=== PATIENT | female | born 1955 | race Caucasian/White ===

== ENCOUNTER 2019-12-18 08:05 | Emergency (ER) | payer MEDICARE, SELFPAY ==
--- NOTE | ~2019-12-18 | XR_ITS ---
EXAMINATION: XR ankle RT min 3V EXAM DATE: 12/18/2019 08:34 INDICATION: Initial encounter following injury, with pain of the right ankle. TECHNIQUE: Right ankle frontal, lateral and oblique projections obtained and reviewed. There is no p rior study for comparison. FINDINGS: The right ankle mortise appears intact. There are no acute fractures or dislocations iden tified. There is no subcutaneous gas. The soft tissue is unremarkable. There are no radiopaque fo reign bodies. IMPRESSION: 1. XR ankle RT min 3V exam without acute osseous findings. Reviewed, dictated and finalized at location [facility]
[2019-12-18 08:18] VITALS: BP 143/66; PULSE 74; RESP 20; TEMP 37.3; O2SAT 99
--- NOTE | 2019-12-18 08:25 | ED.EXTPRO ---
HPI - Extremity Problem General Chief complaint: Extremity Injury, Lower Stated complaint: right ankle injury Time Seen by Provider: 12/18/19 08:25 Source: patient and family History of Present Illness HPI Narrative: Patient presents with right ankle pain. Patient states yesterday she got out of her minivan and thinks she slipped on ice. Patient states she landed on her buttocks and had immediate pain to her right ankle. No swelling no deformity no open areas noted no bruising. Patient states it hurts to walk on the ankle. Patient denies any other injuries. MD Complaint: extremity pain Severity scale (1-10): 1 Related Data Home Medications Medication Instructions Recorded Confirmed No Home Medications 12/18/19 12/18/19 Allergies Allergy/AdvReac Type Severity Reaction Status Date / Time Penicillins Allergy Unknown Verified 12/18/19 08:43 Sulfa (Sulfonamide Allergy Unknown Verified 12/18/19 08:43 Antibiotics) Review of Systems Review of Systems: Narrative: CONSTITUTIONAL: Denies fever, chills, or sweats. EYES: Denies visual changes, redness, or discharge. ENT: Denies rhinorrhea, congestion, sore throat, or otalgia. CARDIOVASCULAR: Denies chest pain, palpitations, or edema. RESPIRATORY: Denies cough or dyspnea. GASTROINTESTINAL: Denies abdominal pain, nausea, vomiting, or diarrhea. GENITOURINARY: Denies dysuria or hematuria. SKIN: Denies rash or itching. MUSCULOSKELETAL: Denies back pain, joint pain, or myalgia. Right ankle pain NEUROLOGIC: Denies headache, numbness, or weakness. PSYCHIATRIC: Denies anxiety or depression. All systems reviewed & are unremarkable except as noted in HPI and below PMFSH Comments At time of signature, agree with nursing past medical, surgical, social and family history. There is no relevant family history pertinent to the presenting complaint Exam Narrative: Exam Narrative: GENERAL: Well-appearing, well-nourished, and in no acute distress. HEAD: Normocephalic, atraumatic. EYES: PERRLA and EOMI. ENT: Nares clear, no rhinorrhea or epistaxis. Mucous membranes moist. NECK: Supple. CHEST: Clear to auscultation. No respiratory distress. HEART: Regular rate and rhythm. No murmur heard. Normal peripheral pulses. ABDOMEN: Soft, nontender, nondistended, normal active bowel sounds. EXTREMITIES: Normal range of motion. No edema. ANKLE EXAM SKIN INTACT. NORMAL DP PULSE, NORMAL CAP REFILL. NORMAL SENSATION. SKIN: Warm, dry, no rash. NEURO: No focal deficits. Alert and oriented x3. Marcelo Coma Scale Eye Opening: Spontaneous 4 Marcelo Coma Scale Motor: Obeys Commands 6 [place] Coma Scale Verbal: Oriented 5 [place] Coma Scale Total 15 Course Vital Signs Vital signs: Vital Signs Temperature 37.3 C 12/18/19 08:18 Pulse Rate 74 12/18/19 08:18 Respiratory Rate 20 12/18/19 08:18 Blood Pressure 143/66 H 12/18/19 08:18 Pulse Oximetry 99 12/18/19 08:18 Temperature 37.3 C 12/18/19 08:18 Pulse Rate 74 12/18/19 08:18 Respiratory Rate 20 12/18/19 08:18 Blood Pressure 143/66 H 12/18/19 08:18 Pulse Oximetry 99 12/18/19 08:18 Please BOSSMAN schedule a followup visit with your personal physician for further evaluation and treatment. Including recheck and discussion of your blood pressure. If your symptoms persist, change or worsen significantly before you can contact your personal physician then please, without delay, go to the emergency department for further evaluation Addressed elevated BP today. Today's blood pressure higher than recommended range. Discussed importance of follow -up with PCP and possible detention effects/cardiovascular events related to HTN. Currently patient denies headache, dizziness, vision changes, CP or shortness of breath. MDM - Extremity (Nontraumatic) Imaging Data Attestation: I personally reviewed and interpreted this imaging study as follows: My impression: Negative ankle x-ray Radiologist's impression: No acute osseous abnormality
== END 2019-12-18 08:55 | disposition home or self-care (01) ==
PROVIDERS: Emergency Provider Nurse Practitioner Family; PCP Family Medicine
DX: S93.401A Sprain of unspecified ligament of right ankle, initial encounter (principal); S96.911A Strain of unspecified muscle and tendon at ankle and foot level, right foot, initial encounter; W19.XXXA Unspecified fall, initial encounter; F32.9 Major depressive disorder, single episode, unspecified
CPT/HCPCS: 73610; 99203; G0463